=== PATIENT | female | born 1970 | race Caucasian/White ===

== ENCOUNTER 2019-04-18 17:04 | Inpatient (IN) | payer BC ==
--- NOTE | 2019-04-18 19:24 | CT ---
EXAM DESCRIPTION: Abdomen/Pelvis w/o Contrast CLINICAL HISTORY: 49 years Female vague abd pain, x2 days COMPARISON: None. TECHNIQUE: Contiguous axial images obtained through the abdomen and pelvis without IV contrast. Reformatted images obtained. This exam was performed according to our department optimization program which includes automated exposure control, adjustment of the mA and/or kv according to patient size and/or use of iterative reconstruction technique. FINDINGS: The lung bases are clear. Small hiatal hernia. The liver appears unremarkable. The spleen and pancreas appear unremarkable. No adrenal masses. The kidneys appear unremarkable. No hydronephrosis or definite ureteral calculi. The gallbladder is visualized. Mild atherosclerotic calcifications. No aneurysmal dilatation of the aorta. No bowel obstruction. The appendix appears unremarkable. There is sigmoid diverticulosis. There is wall thickening in the proximal sigmoid colon with surrounding inflammatory changes consistent with diverticulitis. There is questionable minimal adjacent free air which could be from microperforation. There is minimal free fluid in the pelvis. IMPRESSION: There are findings consistent with sigmoid diverticulitis. There is a questionable minimal amount of adjacent free air which could be from microperforation. There is minimal free fluid in the pelvis. Electronically signed by: Mika Liao MD 04/18/2019 7:23 PM CDT
[2019-04-18] MEDS ORDERED: metroNIDAZOLE IV PREMIX 500MG 500 MG in PREMIX BAG 1 BAG IVPB ONE (19:28)
[2019-04-18] MEDS ORDERED: levoFLOXacin 750MG IV 750 MG in PREMIX BAG 1 BAG IVPB ONE (19:28)
[2019-04-18] MEDS ORDERED: metroNIDAZOLE IV PREMIX 500MG 100 ML IVPB ONE (19:38)
--- NOTE | 2019-04-18 20:37 | ED.PDOC ---
History of Present Illness - General Chief Complaint: Abdominal Pain Stated Complaint: abd pain ,early period Time Seen by Provider: 04/18/19 17:07 Source: patient Exam Limitations: no limitations - History of Present Illness Initial Comments: the patient is a 49-year-old female presents to emergency room secondary to 3 days of vague abdominal pain a little worse in the left lower quadrant. No nausea vomiting diarrhea or constipation. No fevers. She is currently on her menstrual period. No syncope or near-syncope. Timing/Duration: other - 3 days Severity: moderate Improving Factors: nothing Worsening Factors: nothing Associated Symptoms: loss of appetite, malaise Allergies/Adverse Reactions: Allergies Penicillin G Allergy (Verified 10/18/14 17:59) Home Medications: Ambulatory Orders Azithromycin Tab [Zithromax Tab] 250 mg PO QD #6 tab 10/18/14 Review of Systems - Review of Systems Constitutional: States: no symptoms reported EENTM: States: no symptoms reported Respiratory: States: no symptoms reported Cardiology: States: no symptoms reported Gastrointestinal/Abdominal: States: see HPI Genitourinary: States: no symptoms reported Musculoskeletal: States: no symptoms reported Skin: States: no symptoms reported Neurological: States: no symptoms reported Endocrine: States: no symptoms reported All other Systems: No Change from Baseline Past Medical History (General) - Patient Medical History Hx Seizures: No Hx Stroke: No Hx Dementia: No Hx Asthma: No Hx of COPD: No Hx Cardiac Disorders: Yes - hyperlipidemia Hx Congestive Heart Failure: No Hx Pacemaker: No Hx Hypertension: No Hx Thyroid Disease: No Hx Diabetes: No Hx Gastroesophageal Reflux: Yes Hx Renal Disease: No Hx Cancer: No Hx of HIV: No Hx Hepatitis C: No Hx MRSA: No Surgical History: no surgical history - Vaccination History Hx Tetanus, Diphtheria Vaccination: No Hx Influenza Vaccination: No Hx Pneumococcal Vaccination: No - Social History Hx Tobacco Use: No Hx Chewing Tobacco Use: No Hx Alcohol Use: No Hx Substance Use: No Hx Substance Use Treatment: No Hx Depression: No Hx Physical Abuse: No Hx Emotional Abuse: No Hx Suspected Abuse: No - Female History Patient : No Family Medical History - Family History Mother Living Status: Physical Exam - Physical Exam General Appearance: Alert, No apparent distress Eye Exam: bilateral normal Ears, Nose, Throat: hearing grossly normal, normal ENT inspection Neck: full range of motion, supple Respiratory: lungs clear, normal breath sounds, no respiratory distress, no accessory muscle use Cardiovascular/Chest: normal peripheral pulses, regular rate, rhythm, no edema Peripheral Pulses: radial,right: 2+, radial,left: 2+, dorsalis pedis,right: 2+, dorsalis pedis,left: 2+ Gastrointestinal/Abdominal: soft, other - mild to moderate left lower quadrant discomfort palpation. Rectal Exam: deferred Back Exam: no CVA tenderness, no vertebral tenderness Extremity: normal range of motion, non-tender, normal inspection, no pedal edema, normal capillary refill Neurologic: marble cutter II-XII nml as tested, alert, normal mood/affect, oriented x 3 Skin Exam: normal color Comments: Vital Signs - 24 hr 04/18/19 18:28 Temperature 97.1 F L Pulse Rate [ 89 Left Brachial] Respiratory 20 Rate Blood Pressure 136/76 [Left Arm] O2 Sat by Pulse 98 Oximetry Progress - Progress Progress: 04/18/19 20:37 the patient's a 49-year-old female presenting to emergency room secondary to what appears to be sigmoid diverticulitis with a possible microperforation. The patient was placed in the hospital on Levaquin IV and metronidazole IV. I'm going to give her a dose of milk of magnesia to get her cleaned out as well. Pain control medications can be given as needed. Admit for care for above. Surgical consult can be obtained in the morning. - Results/Orders Results/Orders: CT of abdomen and pelvis shows sigmoid diverticulitis with a possible microperforation. No obstruction. No other obvious acute pathology. 04/18/19 19:28 levoFLOXacin 750MG IV [Levaquin 750MG IV] 750 mg Premix Bag 1 bag IVPB ONCE Laboratory Results - last 24 hr 04/18/19 04/18/19 04/18/19 18:12 18:12 18:12 WBC 10.2 RBC 4.32 Hgb 10.1 L Hct 31.5 L MCV 72.8 L MCH 23.5 L MCHC 32.2 L RDW 20.3 H Plt Count 396 MPV 7.6 Absolute Neuts (auto) 6.70 Absolute Lymphs (auto) 2.50 Absolute Monos (auto) 0.70 Absolute Eos (auto) 0.20 Absolute Basos (auto) 0.10 Neutrophils % 65.8 Lymphocytes % 24.7 Monocytes % 6.5 Eosinophils % 2.2 Basophils % 0.8 Normal RBC Morphology 3+aniso Sodium 137 Potassium 3.5 L Chloride 100 L Carbon Dioxide 25 Anion Gap 15.5 BUN 14 Creatinine 0.62 BUN/Creatinine Ratio 22.6 H Random Glucose 91 Serum Osmolality 273.9 L Calcium 8.9 Total Bilirubin 0.5 AST 19 ALT 17 Alkaline Phosphatase 65 Serum Total Protein 7.7 Albumin 3.7 Globulin 4.0 H Albumin/Globulin Ratio 0.9 L Amylase 44 Lipase 20 L Urine Color Urine Appearance Urine pH Ur Specific Wel[place] Urine Protein Urine Glucose (UA) Urine Ketones Urine Blood Urine Nitrite Urine Bilirubin Urine Urobilinogen Ur Leukocyte Esterase Urine RBC Urine WBC Ur Epithelial Cells Urine Bacteria Urine HCG, Qual Negative 04/18/19 18:14 WBC RBC Hgb Hct MCV MCH MCHC RDW Plt Count MPV Absolute Neuts (auto) Absolute Lymphs (auto) Absolute Monos (auto) Absolute Eos (auto) Absolute Basos (auto) Neutrophils % Lymphocytes % Monocytes % Eosinophils % Basophils % Normal RBC Morphology Sodium Potassium Chloride Carbon Dioxide Anion Gap BUN Creatinine BUN/Creatinine Ratio Random Glucose Serum Osmolality Calcium Total Bilirubin AST ALT Alkaline Phosphatase Serum Total Protein Albumin Globulin Albumin/Globulin Ratio Amylase Lipase Urine Color Red H Urine Appearance Cloudy Urine pH 6.0 Ur Specific Weldon >= 1.030 Urine Protein 100 H Urine Glucose (UA) Negative Urine Ketones Negative Urine Blood Large H Urine Nitrite Negative Urine Bilirubin Negative Urine Urobilinogen 1.0 Ur Leukocyte Esterase Negative Urine RBC Tntc H Urine WBC 0 Ur Epithelial Cells 1-3 Urine Bacteria 0 Urine HCG, Qual Departure - Departure Clinical Impression: Sigmoid diverticulitis Disposition: Admit Patient Departure Forms: ED Discharge - Pt. Copy, Patient Portal Self Enrollment Referrals: Donny Sparrow MD [Primary Care Provider] - 1-2 Weeks Home Medications: Ambulatory Orders Azithromycin Tab [Zithromax Tab] 250 mg PO QD #6 tab 10/18/14 Decision To Admit - Decistion To Admit Decision to Admit Reason: Medical Nature Decision to Admit Date: 04/18/19 Decision to Admit Time: 20:38
--- NOTE | 2019-04-18 20:59 | HP ---
SUPERVISING PHYSICIAN: Donny Sparrow MD CHIEF COMPLAINT: Abdominal pain. HISTORY OF PRESENT ILLNESS: This is a 49-year-old female who came into the Emergency Room with abdominal pain. She states that on she developed some diffuse abdominal pain and it worsened a little bit on Friday and Friday. She is not complaining of any nausea or vomiting with this, maybe a low grade fever at 99.0, but took some ibuprofen and this resolved. However, on Friday, she felt a little bit better, but was advised by friends and family to come to the Emergency Room and, therefore, she did. In the Emergency Room, her workup included labs as well as CT scans. Her labs showed a normal white count with no shift. She did have a hemoglobin of 10.1. Her chemistry was pretty much unremarkable as well. Urinalysis showed some blood, but she on her menses. CT scan of the abdomen and pelvis was done as well. The findings were consistent with acute sigmoid diverticulitis along with a possible microperforation as there was a minimal amount of adjacent free air. For that reason, she was referred for admission. She was placed on Flagyl as well as Levaquin for antibiotics. This morning, she is not complaining of any significant discomfort except with deep palpation. She continues to have no nausea or vomiting and vital signs have been acceptable. PAST MEDICAL HISTORY: 1. Hyperlipidemia for which she used to take lipid medications, but took herself off. 2. Reflux. PAST SURGICAL HISTORY: None. MEDICATIONS: 1. Nexium 40 mg p.o. daily. ALLERGIES: PENICILLIN G. FAMILY HISTORY: Reviewed and noncontributory. SOCIAL HISTORY: The patient socially drinks alcohol, but not on a regular basis. No smoking, no illicit drugs. REVIEW OF SYSTEMS: CONSTITUTIONAL: Positive for low grade fever but no chills. No recent weight loss or weight gain. HEENT: No headaches, vision changes, ear pain, nasal congestion or throat pain. RESPIRATORY: No cough, hemoptysis or pleuritic chest pain. CARDIOVASCULAR: No chest pain, palpitations or peripheral edema. GASTROINTESTINAL: Positive for abdominal pain. No nausea, vomiting, diarrhea, constipation. GENITOURINARY: No dysuria, frequency or flank pain. MUSCULOSKELETAL: No muscle cramps, joint pain or joint swelling. SKIN: No rashes, lesions or wounds. ENDOCRINE: No polydipsia, polyuria or polyphagia. No heat or cold intolerance. NEUROLOGIC: No syncope, paresthesias or seizures. PHYSICAL EXAMINATION: VITAL SIGNS: Blood pressure 94/57. Heart rate 80. Respiratory rate 16. Temperature 98.6. Oxygen saturation 98%. GENERAL: Ms. Alvarado is a 49-year-old in no active distress. NEUROLOGIC: The patient is alert and oriented. CHEST: Lung sounds are clear to auscultation bilaterally. CARDIOVASCULAR: Regular rate and rhythm. Normal S1, S2. ABDOMEN: Soft. Positive bowel sounds. There is some minimal tenderness to palpation which is deep palpation to the left lower quadrant. EXTREMITIES: Lower extremities with no edema. Pulses 2+. Capillary refill is less than 2 seconds. LABORATORY: Labs and films are as discussed in history of present illness. ASSESSMENT: 1. Acute sigmoid diverticulitis with possible microperforation. 2. Gastroesophageal reflux disease. 3. Anemia. 4. History of hyperlipidemia. PLAN: At this time, the patient will be continued on the Levaquin and Flagyl. I have contacted Dr. Calix for consultation and he will evaluate the patient as well. I have ordered an abdominal film for this morning as well. We will continue to monitor her hemoglobin and trend the values. Not any transfusion arranged at this time. DVT with early ambulation and GI ulcer prophylaxis with Protonix have been ordered as well. #[id number] MTDD
[2019-04-18] MEDS ORDERED: SODIUM CHLORIDE 0.9% (FLUSH) 10 ML SYG IV PRN (21:38)
[2019-04-18] MEDS ORDERED: ONDANSETRON INJ 4 MG/2 ML VIAL IV PRN (21:44)
[2019-04-18] MEDS ORDERED: IV SET AND CAP CHANGE INJ INJ SCH (22:00)
[2019-04-18] MEDS: KCL 20MEQ/D5NS 1,000 ML IVS PRN (22:11)
[2019-04-19] MEDS ORDERED: metroNIDAZOLE IV PREMIX 500MG 100 ML IVPB ONE ×4 (03:38→21:01)
[2019-04-19] MEDS: metroNIDAZOLE IV PREMIX 500MG 500 MG in PREMIX BAG 1 BAG IVPB SCH ×3 (03:48→19:49)
[2019-04-19] MEDS: PANTOPRAZOLE SODIUM IV 40 MG VIAL IV SCH (06:20)
[2019-04-19] MEDS ORDERED: KCL 20MEQ/D5 1/2NS 0 ML IVS ONE (07:25)
[2019-04-19] MEDS: KCL 20MEQ/D5NS 1,000 ML IVS PRN ×2 (07:29→17:23)
[2019-04-19] MEDS ORDERED: levoFLOXacin 500MG IV 100 ML IVPB ONE (08:21)
[2019-04-19] MEDS: levoFLOXacin 500MG IV 500 MG in PREMIX BAG 1 BAG IVPB SCH (08:50)
[2019-04-19] MEDS: SODIUM CHLORIDE 0.9% (FLUSH) 10 ML SYG IV SCH ×2 (08:55→20:59)
--- NOTE | 2019-04-19 11:31 | RAD ---
EXAM DESCRIPTION: Abdomen Flat Upright CLINICAL HISTORY: possible free air on CT COMPARISON: None. TECHNIQUE: AP supine and upright views the abdomen FINDINGS: The bowel gas pattern is normal. No evidence of free air is detected. The psoas margins are intact. No organomegaly is seen. Phleboliths are observed in the pelvis. No worrisome calcifications are observed. IMPRESSION: Normal abdomen Electronically signed by: Brandon Acosta MD 04/19/2019 11:30 AM CDT
--- NOTE | 2019-04-19 11:48 | CONS ---
DATE OF CONSULTATION: 04/19/19 HISTORY OF PRESENT ILLNESS: The patient is a 49-year-old female who was in her normal state of health until last evening. She was traveling back from seeing one of her daughters in [place] where she developed abdominal bloating and mild tenderness in the left lower quadrant. She denies previous episode of like illness. She states she took fiber and a stool softener which allowed her to have a bowel movement and feel somewhat better, but then the discomfort and feeling of bloating returned. There was no nausea or vomiting. She did not measure temperature, but did feel that she maybe had a low grade temperature. Friday, she was feeling a little bit better, but was advised to come to the Emergency Room yesterday. She was noted to have abdominal tenderness in the left lower quadrant and underwent a CT scan which showed diverticulitis with a question of a microperforation. For that reason, she was admitted and I am asked to help with treatment recommendations. PAST MEDICAL HISTORY: 1. Hyperlipidemia. 2. Gastroesophageal reflux disease. 3. Two vaginal deliveries with living children. PAST SURGICAL HISTORY: She has had no previous surgeries. MEDICATIONS: 1. Nexium daily. ALLERGIES: PENICILLIN. FAMILY HISTORY: Noncontributory. SOCIAL HISTORY: The patient is . She drinks alcohol rarely. She does not use tobacco or illicit drugs. REVIEW OF SYSTEMS: There has been no weight loss, change in her bowel habits. She denies blood per rectum, melanotic stools. She denies hematemesis. She has had no urinary tract infection symptoms. She does continue to have active periods and is in fact currently menstruating. She denies chest pain, shortness of breath or upper respiratory symptoms. LABORATORY: White count 8.2 this morning, down from 10.2. Neutrophils 86.7%, hemoglobin 9.5 with low indices. Platelet count 367,000. Potassium 3.6, creatinine 0.51. Liver functions are within normal limits. Amylase and lipase were within normal limits. CT scan revealed inflammation of the sigmoid colon with the possible microperforation and inflammatory changes around the sigmoid colon. ASSESSMENT: 1. Acute diverticulitis. 2. Gastroesophageal reflux. PLAN: The patient is stable in IV antibiotics and we will continue at least a full 24 hours of IV antibiotics. I will give the patient a low residue diet and she should be discharged on that. I recommended MiraLAX and the patient should go home on MiraLAX. She does need a colonoscopy at this point, however, we should allow complete resolution of her symptoms with colonoscopy at the 4 to 8 week time period. #[id number] JOSIE
[2019-04-19] MEDS: POLYETHYLENE GLYCOL 3350 17 GM PCKT PO SCH (12:11)
[2019-04-20] MEDS: metroNIDAZOLE IV PREMIX 500MG 500 MG in PREMIX BAG 1 BAG IVPB SCH (03:15)
[2019-04-20 06:13] VITALS: TEMP 98.1
[2019-04-20] MEDS: PANTOPRAZOLE SODIUM IV 40 MG VIAL IV SCH (06:59)
[2019-04-20] MEDS ORDERED: levoFLOXacin 500MG IV 100 ML IVPB ONE (07:20)
[2019-04-20] MEDS: levoFLOXacin 500MG IV 500 MG in PREMIX BAG 1 BAG IVPB SCH (07:40)
[2019-04-20] MEDS: SODIUM CHLORIDE 0.9% (FLUSH) 10 ML SYG IV SCH (07:40)
[2019-04-20] MEDS: POLYETHYLENE GLYCOL 3350 17 GM PCKT PO SCH (07:40)
[2019-04-20 10:20] VITALS: BP 130/82; O2SAT 100
--- NOTE | 2019-04-20 13:48 | DS ---
SUPERVISING PHYSICIAN: Donny Sparrow MD ADMISSION DIAGNOSIS: 1. Acute sigmoid diverticulitis with possible microperforation. 2. Gastroesophageal reflux disease. 3. Anemia. 4. History of hyperlipidemia. DISCHARGE DIAGNOSIS: 1. Acute sigmoid diverticulitis with possible microperforation. 2. Gastroesophageal reflux disease. 3. Anemia. 4. History of hyperlipidemia. HISTORY OF PRESENT ILLNESS: This is a 49-year-old female who came into the Emergency Room with abdominal pain. She states that on she developed some diffuse abdominal pain and it worsened a little bit on Friday and Friday. She is not complaining of any nausea or vomiting with this, maybe a low grade fever at 99.0, but took some ibuprofen and this resolved. However, on Friday, she felt a little bit better, but was advised by friends and family to come to the Emergency Room and, therefore, she did. In the Emergency Room, her workup included labs as well as CT scans. Her labs showed a normal white count with no shift. She did have a hemoglobin of 10.1. Her chemistry was pretty much unremarkable as well. Urinalysis showed some blood, but she on her menses. CT scan of the abdomen and pelvis was done as well. The findings were consistent with acute sigmoid diverticulitis along with a possible microperforation as there was a minimal amount of adjacent free air. For that reason, she was referred for admission. She was placed on Flagyl as well as Levaquin for antibiotics. This morning, she is not complaining of any significant discomfort except with deep palpation. She continues to have no nausea or vomiting and vital signs have been acceptable. HOSPITAL COURSE: The patient was evaluated by Dr. Calix and placed on a low residue diet and recommendation for 24 hours of IV antibiotics. This morning, the patient was reevaluated by Dr. Calix. She has been cleared for discharge with outpatient p.o. antibiotics and to followup with Dr. Sparrow. His recommendation also was for future colonoscopy after resolution of this diverticulitis episode. She is going to be discharged on p.o. Flagyl as well as Cipro. I have written for the antibiotics already. Instructions for low resident diet and MiraLAX as well. The patient will be discharged in stable condition. #[id number] [facility]
== END 2019-04-20 11:55 | disposition home or self-care (01) | DRG 392 ==
LOC: ER 17:04 → MS 20:58 → OBSVTOIN 20:58
PROVIDERS: ADMIT Nurse Practitioner; ATTEND Nurse Practitioner
DX: K57.20 Diverticulitis of large intestine with perforation and abscess without bleeding (principal); E78.5 Hyperlipidemia, unspecified; K21.9 Gastro-esophageal reflux disease without esophagitis; D64.9 Anemia, unspecified; Z88.0 Allergy status to penicillin; Z79.899 Other long term (current) drug therapy